=== PATIENT | female | born 1995 | race Hispanic/Latino ===

== ENCOUNTER 2022-09-16 08:12 | Outpatient (CLI) | payer BC, SELFPAY ==
--- NOTE | 2022-09-16 | ECG_ITS ---
Measurements Intervals [place] Rate: 90 P: 58 WV: 146 QRS: 93 QRSD: 90 T: 41 QT: 375 QTc: 459 Interpretive Statements SINUS RHYTHM POSSIBLE LEFT ATRIAL ENLARGEMENT [-0.1mV P WAVE IN V1/V2] BORDERLINE RIGHT AXIS DEVIATION [QRS AXIS > 90] POSSIBLE RIGHT VENTRICULAR CONDUCTION DELAY [RSR (QR) IN V1/V2] NONSPECIFIC T-WAVE ABNORMALITY ABNORMAL ECG Electronically Signed On 09-16-2022 15:33:20 [employer] by Fazal Ovalle M.D.
== END 2022-09-16 08:13 | disposition home or self-care (01) ==
LOC: ANHLAB 08:18 → ANHCARD 08:18
PROVIDERS: PCP Physician Assistant; Visit Provider Physician Assistant
DX: R00.2 Palpitations (principal); R94.31 Abnormal electrocardiogram [ECG] [EKG]
CPT/HCPCS: 93005